=== PATIENT | female | born 1955 | race Caucasian/White ===

== ENCOUNTER 2017-11-04 22:07 | Inpatient (IN) | payer MEDICARE ==
[2017-11-04] MEDS: MORPHINE 4 MG/ML 1ML SYRINGE IV (00:10)
[2017-11-04] MEDS: NS 1,000 ML IV (00:10)
[2017-11-04] MEDS: ONDANSETRON 4MG/2ML VIAL (J2405) IV (00:10)
[2017-11-05] MEDS ORDERED: UNRESOLVED CLARIFICATION ENTRY XX (00:01)
[2017-11-05 00:16] LABS: KETONE, URINE AUTO RFX 1+ mg/dL (NEGATIVE); LEUKOCYTE ESTERASE UR AUTO RFX NEGATIVE (NEGATIVE); MUCUS, URINE RFX SMALL (NEGATIVE); NITRITE, URINE AUTO RFX NEGATIVE (NEGATIVE); RBC, URINE AUTO RFX 5 /HPF (0-3); SPECIFIC GRAVITY UR AUTO RFX 1.024 (1.002-1.035); SQUAM EPITHELIAL CELL UR AURFX 5 /HPF (0-6); TRANSITIONAL EPITHELIAL AU RFX 26 /HPF; WBC, URINE AUTO RFX 0 /HPF (0-3)
[2017-11-05] MEDS ORDERED: MORPHINE 2 MG/ML 1ML SYRINGE IV (00:30)
[2017-11-05 00:34] LABS: INR 0.97
[2017-11-05 00:50] LABS: ANION GAP 9 MEQ/L (8-16); BLOOD UREA NITROGEN 19 MG/DL (7-18); CARBON DIOXIDE LEVEL 28 MEQ/L (21-32); CHLORIDE LEVEL 100 MEQ/L (98-107); CPK CREATINE PHOSPHOKINASE 155 U/L (26-192); CREATININE FOR GFR 0.76 MG/DL (0.55-1.02); GLOMERULAR FILTRATION RATE > 60.0 (>45); GLUCOSE, FASTING 89 MG/DL (80-110); POTASSIUM SERUM 4.2 MEQ/L (3.5-5.1); SODIUM LEVEL 137 MEQ/L (136-145); TROPONIN I < 0.02 NG/ML (< 0.10)
[2017-11-05 00:51] LABS: CK-MB VALUE MASS 2.9 NG/ML (0.0-3.6); MB/CK RELATIVE INDEX 1.87 (< OR =4)
[2017-11-05 01:02] LABS: HEMATOCRIT 43.8 % (36.0-47.0); HEMOGLOBIN 15.2 g/dl (12.0-16.0); MEAN CORPUSCULAR HEMOGLOBIN 31.2 pg (27.0-33.0); MEAN CORPUSCULAR HGB CONC 34.7 g/dl (32.0-36.5); MEAN CORPUSCULAR VOLUME 89.9 fl (80.0-96.0); PLATELET COUNT, AUTOMATED 291 10^3/uL (150-450); RED BLOOD COUNT 4.87 10^6/uL (4.00-5.40); RED CELL DISTRIBUTION WIDTH 12.6 % (11.5-14.5); WHITE BLOOD COUNT 9.7 10^3/uL (4.0-10.0)
[2017-11-05] MEDS: ALBUTEROL SULFATE 2.5 MG/0.5 ML INH NEB SOLN INH (01:12)
[2017-11-05] MEDS: MORPHINE 2 MG/ML 1ML SYRINGE IV ×3 (07:05→19:51)
[2017-11-05] MEDS: SERTRALINE HCL 50 MG TAB PO (08:51)
[2017-11-05] MEDS: FAMOTIDINE 20 MG TAB PO ×2 (08:51→19:51)
[2017-11-05] MEDS: IBUPROFEN 200 MG TAB PO ×2 (08:56→18:09)
[2017-11-05] MEDS: NS 1,000 ML IV (11:27)
[2017-11-05 14:47] LABS: ABG BASE EXCESS -2.5 (-2.0-2.0); ABG HCO3 23.5 MEQ/L (22.0-26.0); ABG O2 SATURATION 90.1 % (95.0-99.0); ABG PARTIAL PRESSURE CO2 44.8 mmHg (35.0-45.0); ABG PARTIAL PRESSURE O2 60.8 mmHg (75.0-100.0); ABG STANDARD HCO3 22.2 MEQ/L (22.0-26.0); ABG TOTAL CO2 24.8 MEQ/L (23.0-31.0); ABG pH (ARTERIAL) 7.337 UNITS (7.350-7.450)
[2017-11-05] MEDS: PERCOCET 5MG/325MG TAB PO (18:54)
[2017-11-06] MEDS: NS 1,000 ML IV ×2 (01:36→14:03)
[2017-11-06] MEDS: PERCOCET 5MG/325MG TAB PO ×2 (05:05→20:17)
[2017-11-06 07:11] LABS: HEMATOCRIT 35.2 % (36.0-47.0); MEAN CORPUSCULAR HEMOGLOBIN 30.4 pg (27.0-33.0); MEAN CORPUSCULAR VOLUME 92.4 fl (80.0-96.0); PLATELET COUNT, AUTOMATED 240 10^3/uL (150-450); RED BLOOD COUNT 3.81 10^6/uL (4.00-5.40); RED CELL DISTRIBUTION WIDTH 12.6 % (11.5-14.5); WHITE BLOOD COUNT 6.2 10^3/uL (4.0-10.0)
[2017-11-06 07:24] LABS: HEMOGLOBIN 11.6 g/dl (12.0-16.0)
[2017-11-06 07:25] LABS: ANION GAP 4 MEQ/L (8-16); BLOOD UREA NITROGEN 16 MG/DL (7-18); CALCIUM LEVEL 7.7 MG/DL (8.8-10.2); CARBON DIOXIDE LEVEL 29 MEQ/L (21-32); CHLORIDE LEVEL 107 MEQ/L (98-107); CREATININE FOR GFR 0.49 MG/DL (0.55-1.02); GLOMERULAR FILTRATION RATE > 60.0 (>45); GLUCOSE, FASTING 70 MG/DL (80-110); POTASSIUM SERUM 3.8 MEQ/L (3.5-5.1); SODIUM LEVEL 140 MEQ/L (136-145)
[2017-11-06] MEDS: SERTRALINE HCL 50 MG TAB PO (09:00)
[2017-11-06] MEDS: FAMOTIDINE 20 MG TAB PO ×2 (09:00→20:17)
[2017-11-06] MEDS: IPRATROPIUM 0.5MG/ALBUTEROL 2.5MG INH SOL UD 3ML (DUONEB)(J7620) NEB ×5 (09:29→23:19)
[2017-11-06] MEDS: ceFAZolin 2 GM/D5W 50 ML IV BAG (J0690 PER 500MG) As Ordered (11:10)
[2017-11-06] MEDS: LIDOCAINE 2% MDV 20 ML VIAL As Ordered (11:20)
[2017-11-06] MEDS ORDERED: KETAMINE HCL 200 MG/20 ML VIAL As Ordered (11:30)
[2017-11-06] MEDS ORDERED: ePHEDrine SULFATE 25 MG/5 ML(5MG/ML) SYRINGE As Ordered (11:30)
[2017-11-06] MEDS ORDERED: PHENYLephrine HCL 500 MCG/5 ML (100MCG/ML) SYRINGE (J2370) As Ordered (11:30)
[2017-11-06] MEDS ORDERED: MIDAZOLAM INJ 2 MG/2 ML VIAL (J2250) As Ordered (11:30)
[2017-11-06] MEDS: ceFAZolin 1GM INJ (J0690 PER 500MG) As Ordered (11:37)
[2017-11-06] MEDS ORDERED: ONDANSETRON 4MG/2ML VIAL (J2405) As Ordered (11:37)
[2017-11-06] MEDS ORDERED: dexameTHASONE 4 MG/ML 1ML VIAL (J1100) As Ordered (11:37)
[2017-11-06] MEDS ORDERED: HYDROmorphone HCL 1 MG/ML SYRINGE (J1170) IV (12:30)
[2017-11-06] MEDS ORDERED: fentaNYL 100 MCG/2 ML INJECTION (J3010) IV (12:30)
[2017-11-06] MEDS: LR 1,000 ML IV (12:30)
[2017-11-06] MEDS ORDERED: ONDANSETRON 4MG/2ML VIAL (J2405) IV (12:30)
[2017-11-06] MEDS: CALCIUM GLUCONATE 1,000 MG in D5W MINI-BAG PLUS 100 ML IV (14:02)
[2017-11-06] MEDS: MORPHINE 2 MG/ML 1ML SYRINGE IV (14:03)
[2017-11-06] MEDS: INFLUENZA QUADRIVALENT PF VACCINE 0.5ML SYRINGE (90686) IM (14:04)
[2017-11-06] MEDS: WARFARIN SOD 5 MG TAB PO (16:04)
[2017-11-07] MEDS: IPRATROPIUM 0.5MG/ALBUTEROL 2.5MG INH SOL UD 3ML (DUONEB)(J7620) NEB ×6 (04:00→22:51)
[2017-11-07] MEDS: PERCOCET 5MG/325MG TAB PO ×3 (04:52→19:54)
[2017-11-07] MEDS: NS 1,000 ML IV (06:26)
[2017-11-07 06:34] LABS: HEMATOCRIT 34.8 % (36.0-47.0); HEMOGLOBIN 11.9 g/dl (12.0-16.0); MEAN CORPUSCULAR HEMOGLOBIN 31.1 pg (27.0-33.0); MEAN CORPUSCULAR HGB CONC 34.2 g/dl (32.0-36.5); MEAN CORPUSCULAR VOLUME 90.9 fl (80.0-96.0); PLATELET COUNT, AUTOMATED 206 10^3/uL (150-450); RED BLOOD COUNT 3.83 10^6/uL (4.00-5.40); RED CELL DISTRIBUTION WIDTH 12.3 % (11.5-14.5); WHITE BLOOD COUNT 6.2 10^3/uL (4.0-10.0)
[2017-11-07 06:47] LABS: INR 1.08; PROTHROMBIN TIME 14.1 SECONDS (12.4-14.5)
[2017-11-07 07:02] LABS: ANION GAP 8 MEQ/L (8-16); BLOOD UREA NITROGEN 9 MG/DL (7-18); CALCIUM LEVEL 7.8 MG/DL (8.8-10.2); CARBON DIOXIDE LEVEL 28 MEQ/L (21-32); CHLORIDE LEVEL 103 MEQ/L (98-107); CREATININE FOR GFR 0.37 MG/DL (0.55-1.02); GLOMERULAR FILTRATION RATE > 60.0 (>45); GLUCOSE, FASTING 83 MG/DL (80-110); POTASSIUM SERUM 4.1 MEQ/L (3.5-5.1); SODIUM LEVEL 139 MEQ/L (136-145)
[2017-11-07 08:44] LABS: IONIZED CALCIUM 4.3 MG/DL (4.5-5.3)
[2017-11-07] MEDS: SERTRALINE HCL 50 MG TAB PO (08:44)
[2017-11-07] MEDS: SENOKOT S TAB PO ×2 (08:45→19:53)
[2017-11-07] MEDS: FAMOTIDINE 20 MG TAB PO ×2 (08:45→19:53)
[2017-11-07] MEDS: MIRALAX *UNIT DOSE* 17GM PACKET PO (08:45)
[2017-11-07] MEDS: MOM 30ML SUSPENSION UDC PO (08:45)
[2017-11-07] MEDS: MORPHINE 2 MG/ML 1ML SYRINGE IV (08:49)
[2017-11-07] MEDS: WARFARIN SOD 2.5 MG TAB PO (17:12)
[2017-11-08] MEDS: IPRATROPIUM 0.5MG/ALBUTEROL 2.5MG INH SOL UD 3ML (DUONEB)(J7620) NEB ×5 (01:56→20:24)
[2017-11-08] MEDS: PERCOCET 5MG/325MG TAB PO (06:18)
[2017-11-08 06:50] LABS: HEMATOCRIT 39.2 % (36.0-47.0); HEMOGLOBIN 13.3 g/dl (12.0-16.0); MEAN CORPUSCULAR HGB CONC 33.9 g/dl (32.0-36.5); MEAN CORPUSCULAR VOLUME 91.4 fl (80.0-96.0); PLATELET COUNT, AUTOMATED 265 10^3/uL (150-450); RED BLOOD COUNT 4.29 10^6/uL (4.00-5.40); RED CELL DISTRIBUTION WIDTH 12.7 % (11.5-14.5)
[2017-11-08 06:58] LABS: PROTHROMBIN TIME 15.4 SECONDS (12.4-14.5)
[2017-11-08 07:15] LABS: ANION GAP 4 MEQ/L (8-16); BLOOD UREA NITROGEN 9 MG/DL (7-18); CALCIUM LEVEL 8.3 MG/DL (8.8-10.2); CARBON DIOXIDE LEVEL 35 MEQ/L (21-32); CHLORIDE LEVEL 99 MEQ/L (98-107); GLUCOSE, FASTING 77 MG/DL (80-110); POTASSIUM SERUM 4.2 MEQ/L (3.5-5.1); SODIUM LEVEL 138 MEQ/L (136-145)
[2017-11-08 07:24] LABS: GLOMERULAR FILTRATION RATE > 60.0 (>45)
[2017-11-08] MEDS: SENOKOT S TAB PO ×2 (09:59→19:37)
[2017-11-08] MEDS: MOM 30ML SUSPENSION UDC PO (09:59)
[2017-11-08] MEDS: MIRALAX *UNIT DOSE* 17GM PACKET PO (09:59)
[2017-11-08] MEDS: FAMOTIDINE 20 MG TAB PO ×2 (10:00→19:37)
[2017-11-08] MEDS: SERTRALINE HCL 50 MG TAB PO (10:00)
[2017-11-08] MEDS ORDERED: traMADol 50 MG TAB PO (11:15)
[2017-11-08] MEDS: WARFARIN SOD 4 MG TAB PO (16:37)
[2017-11-08] MEDS: traMADol 50 MG TAB PO (19:37)
[2017-11-09] MEDS: IPRATROPIUM 0.5MG/ALBUTEROL 2.5MG INH SOL UD 3ML (DUONEB)(J7620) NEB ×6 (03:41→20:00)
[2017-11-09] MEDS: traMADol 50 MG TAB PO (05:22)
[2017-11-09 07:12] LABS: HEMATOCRIT 42.7 % (36.0-47.0); HEMOGLOBIN 14.5 g/dl (12.0-16.0); MEAN CORPUSCULAR HEMOGLOBIN 31.2 pg (27.0-33.0); MEAN CORPUSCULAR VOLUME 91.8 fl (80.0-96.0); PLATELET COUNT, AUTOMATED 321 10^3/uL (150-450); RED BLOOD COUNT 4.65 10^6/uL (4.00-5.40); RED CELL DISTRIBUTION WIDTH 12.8 % (11.5-14.5); WHITE BLOOD COUNT 6.7 10^3/uL (4.0-10.0)
[2017-11-09 07:18] LABS: PROTHROMBIN TIME 17.5 SECONDS (12.4-14.5)
[2017-11-09 08:17] LABS: ANION GAP 5 MEQ/L (8-16); BLOOD UREA NITROGEN 7 MG/DL (7-18); CALCIUM LEVEL 9.1 MG/DL (8.8-10.2); CARBON DIOXIDE LEVEL 32 MEQ/L (21-32); CHLORIDE LEVEL 96 MEQ/L (98-107); CREATININE FOR GFR 0.57 MG/DL (0.55-1.02); GLOMERULAR FILTRATION RATE > 60.0 (>45); GLUCOSE, FASTING 92 MG/DL (80-110); SODIUM LEVEL 133 MEQ/L (136-145)
[2017-11-09] MEDS: MOM 30ML SUSPENSION UDC PO (09:59)
[2017-11-09] MEDS: SENOKOT S TAB PO ×2 (09:59→20:04)
[2017-11-09] MEDS: MIRALAX *UNIT DOSE* 17GM PACKET PO (09:59)
[2017-11-09] MEDS: SERTRALINE HCL 50 MG TAB PO (10:00)
[2017-11-09] MEDS: FAMOTIDINE 20 MG TAB PO ×2 (10:00→20:04)
[2017-11-09] MEDS: D5W/0.45% SODIUM CHLORIDE 1,000 ML IV ×2 (11:48→20:04)
[2017-11-09] MEDS: WARFARIN SOD 3 MG TAB PO (17:48)
[2017-11-10] MEDS: IPRATROPIUM 0.5MG/ALBUTEROL 2.5MG INH SOL UD 3ML (DUONEB)(J7620) NEB ×6 (04:00→20:53)
[2017-11-10 06:53] LABS: HEMATOCRIT 39.5 % (36.0-47.0); HEMOGLOBIN 13.4 g/dl (12.0-16.0); MEAN CORPUSCULAR HEMOGLOBIN 31.3 pg (27.0-33.0); MEAN CORPUSCULAR HGB CONC 33.9 g/dl (32.0-36.5); MEAN CORPUSCULAR VOLUME 92.3 fl (80.0-96.0); PLATELET COUNT, AUTOMATED 333 10^3/uL (150-450); RED BLOOD COUNT 4.28 10^6/uL (4.00-5.40); WHITE BLOOD COUNT 6.1 10^3/uL (4.0-10.0)
[2017-11-10 07:04] LABS: ANION GAP 6 MEQ/L (8-16); BLOOD UREA NITROGEN 7 MG/DL (7-18); CALCIUM LEVEL 8.1 MG/DL (8.8-10.2); CARBON DIOXIDE LEVEL 32 MEQ/L (21-32); CHLORIDE LEVEL 99 MEQ/L (98-107); CREATININE FOR GFR 0.65 MG/DL (0.55-1.02); GLOMERULAR FILTRATION RATE > 60.0 (>45); GLUCOSE, FASTING 107 MG/DL (80-110); POTASSIUM SERUM 3.6 MEQ/L (3.5-5.1); SODIUM LEVEL 137 MEQ/L (136-145)
[2017-11-10 07:09] LABS: INR 1.52; PROTHROMBIN TIME 18.7 SECONDS (12.4-14.5)
[2017-11-10] MEDS: MIRALAX *UNIT DOSE* 17GM PACKET PO (09:00)
[2017-11-10] MEDS: SERTRALINE HCL 50 MG TAB PO (10:01)
[2017-11-10] MEDS: SENOKOT S TAB PO ×2 (10:01→20:30)
[2017-11-10] MEDS: MOM 30ML SUSPENSION UDC PO (10:01)
[2017-11-10] MEDS: FAMOTIDINE 20 MG TAB PO ×2 (10:01→20:30)
[2017-11-10] MEDS: ACETAMINOPHEN 500 MG TAB PO ×2 (15:09→23:05)
[2017-11-10] MEDS: WARFARIN SOD 3 MG TAB PO (16:29)
[2017-11-11] MEDS: IPRATROPIUM 0.5MG/ALBUTEROL 2.5MG INH SOL UD 3ML (DUONEB)(J7620) NEB ×6 (03:14→19:31)
[2017-11-11 06:10] LABS: HEMATOCRIT 36.8 % (36.0-47.0); HEMOGLOBIN 12.5 g/dl (12.0-16.0); MEAN CORPUSCULAR VOLUME 91.3 fl (80.0-96.0); PLATELET COUNT, AUTOMATED 352 10^3/uL (150-450); RED BLOOD COUNT 4.03 10^6/uL (4.00-5.40); RED CELL DISTRIBUTION WIDTH 12.8 % (11.5-14.5); WHITE BLOOD COUNT 5.5 10^3/uL (4.0-10.0)
[2017-11-11 06:33] LABS: ANION GAP 5 MEQ/L (8-16); BLOOD UREA NITROGEN 13 MG/DL (7-18); CALCIUM LEVEL 8.3 MG/DL (8.8-10.2); CARBON DIOXIDE LEVEL 29 MEQ/L (21-32); CHLORIDE LEVEL 102 MEQ/L (98-107); CREATININE FOR GFR 0.54 MG/DL (0.55-1.02); GLOMERULAR FILTRATION RATE > 60.0 (>45); GLUCOSE, FASTING 85 MG/DL (80-110); POTASSIUM SERUM 3.9 MEQ/L (3.5-5.1); SODIUM LEVEL 136 MEQ/L (136-145)
[2017-11-11] MEDS: FAMOTIDINE 20 MG TAB PO ×2 (08:24→20:08)
[2017-11-11] MEDS: ACETAMINOPHEN 500 MG TAB PO ×2 (08:24→20:08)
[2017-11-11] MEDS: SERTRALINE HCL 50 MG TAB PO (08:24)
[2017-11-11] MEDS: SENOKOT S TAB PO ×2 (08:24→20:08)
[2017-11-11] MEDS: MOM 30ML SUSPENSION UDC PO (08:25)
[2017-11-11] MEDS: MIRALAX *UNIT DOSE* 17GM PACKET PO (08:26)
[2017-11-12] MEDS: IPRATROPIUM 0.5MG/ALBUTEROL 2.5MG INH SOL UD 3ML (DUONEB)(J7620) NEB ×6 (03:10→21:02)
[2017-11-12 06:56] LABS: HEMATOCRIT 35.8 % (36.0-47.0); MEAN CORPUSCULAR HEMOGLOBIN 31.3 pg (27.0-33.0); MEAN CORPUSCULAR HGB CONC 33.5 g/dl (32.0-36.5); MEAN CORPUSCULAR VOLUME 93.5 fl (80.0-96.0); PLATELET COUNT, AUTOMATED 343 10^3/uL (150-450); RED BLOOD COUNT 3.83 10^6/uL (4.00-5.40); RED CELL DISTRIBUTION WIDTH 13.2 % (11.5-14.5); WHITE BLOOD COUNT 6.2 10^3/uL (4.0-10.0)
[2017-11-12 07:26] LABS: ANION GAP 8 MEQ/L (8-16); BLOOD UREA NITROGEN 16 MG/DL (7-18); CALCIUM LEVEL 8.5 MG/DL (8.8-10.2); CARBON DIOXIDE LEVEL 29 MEQ/L (21-32); CHLORIDE LEVEL 102 MEQ/L (98-107); GLOMERULAR FILTRATION RATE > 60.0 (>45); GLUCOSE, FASTING 85 MG/DL (80-110); POTASSIUM SERUM 3.9 MEQ/L (3.5-5.1); SODIUM LEVEL 139 MEQ/L (136-145)
[2017-11-12] MEDS: MOM 30ML SUSPENSION UDC PO ×2 (09:00→09:23)
[2017-11-12] MEDS: SENOKOT S TAB PO ×2 (09:23→20:25)
[2017-11-12] MEDS: ACETAMINOPHEN 500 MG TAB PO ×2 (09:24→20:25)
[2017-11-12] MEDS: MIRALAX *UNIT DOSE* 17GM PACKET PO (09:24)
[2017-11-12] MEDS: SERTRALINE HCL 50 MG TAB PO (09:24)
[2017-11-12] MEDS: FAMOTIDINE 20 MG TAB PO ×2 (09:24→20:24)
[2017-11-12] MEDS: MAGNESIUM CITRATE 300 ML BTL PO (10:39)
[2017-11-12] MEDS: FLEET ENEMA PR (15:41)
[2017-11-12] MEDS: WARFARIN SOD 5 MG TAB PO (17:42)
[2017-11-13 07:27] LABS: INR 1.32; PROTHROMBIN TIME 16.7 SECONDS (12.4-14.5)
[2017-11-13] MEDS: SERTRALINE HCL 50 MG TAB PO (08:25)
[2017-11-13] MEDS: FAMOTIDINE 20 MG TAB PO ×2 (08:25→20:04)
[2017-11-13] MEDS: SENOKOT S TAB PO ×2 (08:25→20:05)
[2017-11-13] MEDS: MOM 30ML SUSPENSION UDC PO (08:26)
[2017-11-13] MEDS: MIRALAX *UNIT DOSE* 17GM PACKET PO ×2 (08:26→09:32)
[2017-11-13] MEDS: IPRATROPIUM 0.5MG/ALBUTEROL 2.5MG INH SOL UD 3ML (DUONEB)(J7620) NEB ×6 (09:05→23:47)
[2017-11-13] MEDS: WARFARIN SOD 3 MG TAB PO (18:00)
[2017-11-13] MEDS: ACETAMINOPHEN 500 MG TAB PO (20:05)
[2017-11-14] MEDS: IPRATROPIUM 0.5MG/ALBUTEROL 2.5MG INH SOL UD 3ML (DUONEB)(J7620) NEB ×4 (04:00→20:23)
[2017-11-14 06:52] LABS: INR 1.37; PROTHROMBIN TIME 17.2 SECONDS (12.4-14.5)
[2017-11-14] MEDS: FAMOTIDINE 20 MG TAB PO ×2 (08:12→20:10)
[2017-11-14] MEDS: SERTRALINE HCL 50 MG TAB PO (08:12)
[2017-11-14] MEDS: SENOKOT S TAB PO ×2 (08:12→20:10)
[2017-11-14] MEDS: ACETAMINOPHEN 500 MG TAB PO ×2 (08:12→20:10)
[2017-11-14] MEDS: MIRALAX *UNIT DOSE* 17GM PACKET PO (08:13)
[2017-11-14] MEDS: MOM 30ML SUSPENSION UDC PO ×2 (08:13→08:19)
[2017-11-14] MEDS: WARFARIN SOD 7.5 MG TAB PO (17:11)
[2017-11-15] MEDS: IPRATROPIUM 0.5MG/ALBUTEROL 2.5MG INH SOL UD 3ML (DUONEB)(J7620) NEB ×8 (04:00→23:01)
[2017-11-15 06:46] LABS: INR 1.83; PROTHROMBIN TIME 21.7 SECONDS (12.4-14.5)
[2017-11-15] MEDS: FAMOTIDINE 20 MG TAB PO ×2 (08:45→21:13)
[2017-11-15] MEDS: SERTRALINE HCL 50 MG TAB PO (08:45)
[2017-11-15] MEDS: SENOKOT S TAB PO ×2 (08:45→21:13)
[2017-11-15] MEDS: MIRALAX *UNIT DOSE* 17GM PACKET PO (08:46)
[2017-11-15] MEDS: ACETAMINOPHEN 500 MG TAB PO ×2 (08:46→18:07)
[2017-11-15] MEDS: MOM 30ML SUSPENSION UDC PO (08:46)
[2017-11-16 06:29] LABS: INR 1.78; PROTHROMBIN TIME 21.3 SECONDS (12.4-14.5)
[2017-11-16] MEDS: ACETAMINOPHEN 500 MG TAB PO ×2 (07:54→16:51)
[2017-11-16] MEDS: SENOKOT S TAB PO ×2 (07:55→20:00)
[2017-11-16] MEDS: FAMOTIDINE 20 MG TAB PO ×2 (07:55→20:00)
[2017-11-16] MEDS: MOM 30ML SUSPENSION UDC PO (07:55)
[2017-11-16] MEDS: MIRALAX *UNIT DOSE* 17GM PACKET PO (07:55)
[2017-11-16] MEDS: SERTRALINE HCL 50 MG TAB PO (07:55)
[2017-11-16] MEDS: IPRATROPIUM 0.5MG/ALBUTEROL 2.5MG INH SOL UD 3ML (DUONEB)(J7620) NEB ×6 (08:00→23:36)
[2017-11-16] MEDS: WARFARIN SOD 5 MG TAB PO (16:51)
[2017-11-17 07:06] LABS: INR 1.65
[2017-11-17] MEDS: IPRATROPIUM 0.5MG/ALBUTEROL 2.5MG INH SOL UD 3ML (DUONEB)(J7620) NEB ×6 (07:17→23:01)
[2017-11-17] MEDS: MIRALAX *UNIT DOSE* 17GM PACKET PO (08:16)
[2017-11-17] MEDS: MOM 30ML SUSPENSION UDC PO (08:16)
[2017-11-17] MEDS: SERTRALINE HCL 50 MG TAB PO (08:16)
[2017-11-17] MEDS: SENOKOT S TAB PO ×2 (08:16→21:23)
[2017-11-17] MEDS: FAMOTIDINE 20 MG TAB PO ×2 (08:16→21:24)
[2017-11-17] MEDS: WARFARIN SOD 2.5 MG TAB PO (16:40)
[2017-11-18] MEDS: ACETAMINOPHEN 500 MG TAB PO ×2 (03:21→20:13)
[2017-11-18 07:15] LABS: INR 1.65
[2017-11-18] MEDS: IPRATROPIUM 0.5MG/ALBUTEROL 2.5MG INH SOL UD 3ML (DUONEB)(J7620) NEB ×5 (07:47→23:00)
[2017-11-18] MEDS: MIRALAX *UNIT DOSE* 17GM PACKET PO (09:31)
[2017-11-18] MEDS: MOM 30ML SUSPENSION UDC PO (09:31)
[2017-11-18] MEDS: SENOKOT S TAB PO ×2 (09:31→20:13)
[2017-11-18] MEDS: FAMOTIDINE 20 MG TAB PO ×2 (09:31→20:13)
[2017-11-18] MEDS: SERTRALINE HCL 50 MG TAB PO (09:32)
[2017-11-18] MEDS: WARFARIN SOD 2.5 MG TAB PO (17:10)
[2017-11-19] MEDS: IPRATROPIUM 0.5MG/ALBUTEROL 2.5MG INH SOL UD 3ML (DUONEB)(J7620) NEB ×6 (03:49→23:45)
[2017-11-19 07:08] LABS: HEMATOCRIT 33.8 % (36.0-47.0); HEMOGLOBIN 11.6 g/dl (12.0-16.0); MEAN CORPUSCULAR HEMOGLOBIN 31.1 pg (27.0-33.0); MEAN CORPUSCULAR HGB CONC 34.3 g/dl (32.0-36.5); MEAN CORPUSCULAR VOLUME 90.6 fl (80.0-96.0); PLATELET COUNT, AUTOMATED 468 10^3/uL (150-450); RED BLOOD COUNT 3.73 10^6/uL (4.00-5.40); RED CELL DISTRIBUTION WIDTH 12.9 % (11.5-14.5)
[2017-11-19 07:23] LABS: ANION GAP 8 MEQ/L (8-16); BLOOD UREA NITROGEN 20 MG/DL (7-18); CALCIUM LEVEL 8.2 MG/DL (8.8-10.2); CARBON DIOXIDE LEVEL 29 MEQ/L (21-32); CHLORIDE LEVEL 101 MEQ/L (98-107); CREATININE FOR GFR 0.51 MG/DL (0.55-1.02); GLOMERULAR FILTRATION RATE > 60.0 (>45); GLUCOSE, FASTING 83 MG/DL (80-110); INR 1.59; POTASSIUM SERUM 3.6 MEQ/L (3.5-5.1); PROTHROMBIN TIME 19.4 SECONDS (12.4-14.5); SODIUM LEVEL 138 MEQ/L (136-145)
[2017-11-19] MEDS: FAMOTIDINE 20 MG TAB PO ×2 (07:54→20:07)
[2017-11-19] MEDS: MIRALAX *UNIT DOSE* 17GM PACKET PO (07:54)
[2017-11-19] MEDS: SENOKOT S TAB PO ×2 (07:54→20:07)
[2017-11-19] MEDS: MOM 30ML SUSPENSION UDC PO ×2 (07:54→07:56)
[2017-11-19] MEDS: SERTRALINE HCL 50 MG TAB PO (07:54)
[2017-11-19] MEDS: WARFARIN SOD 4 MG TAB PO (16:39)
[2017-11-19] MEDS: ACETAMINOPHEN 500 MG TAB PO (20:07)
[2017-11-20] MEDS: IPRATROPIUM 0.5MG/ALBUTEROL 2.5MG INH SOL UD 3ML (DUONEB)(J7620) NEB ×5 (04:00→21:54)
[2017-11-20] MEDS: ACETAMINOPHEN 500 MG TAB PO ×2 (05:09→16:52)
[2017-11-20 07:05] LABS: INR 1.66; PROTHROMBIN TIME 20.1 SECONDS (12.4-14.5)
[2017-11-20] MEDS: MAGNESIUM CITRATE 300 ML BTL PO (07:08)
[2017-11-20] MEDS: MOM 30ML SUSPENSION UDC PO (09:07)
[2017-11-20] MEDS: SENOKOT S TAB PO ×2 (09:07→19:48)
[2017-11-20] MEDS: FAMOTIDINE 20 MG TAB PO ×2 (09:07→19:48)
[2017-11-20] MEDS: SERTRALINE HCL 50 MG TAB PO (09:07)
[2017-11-20] MEDS: MIRALAX *UNIT DOSE* 17GM PACKET PO (09:07)
[2017-11-20] MEDS: WARFARIN SOD 5 MG TAB PO (16:51)
[2017-11-21] MEDS: IPRATROPIUM 0.5MG/ALBUTEROL 2.5MG INH SOL UD 3ML (DUONEB)(J7620) NEB ×6 (04:00→19:49)
[2017-11-21] MEDS: MOM 30ML SUSPENSION UDC PO (10:01)
[2017-11-21] MEDS: SENOKOT S TAB PO ×2 (10:02→20:22)
[2017-11-21] MEDS: FAMOTIDINE 20 MG TAB PO ×2 (10:02→20:21)
[2017-11-21] MEDS: SERTRALINE HCL 50 MG TAB PO (10:02)
[2017-11-21] MEDS: MIRALAX *UNIT DOSE* 17GM PACKET PO (10:02)
[2017-11-21] MEDS: WARFARIN SOD 2.5 MG TAB PO (17:10)
[2017-11-22] MEDS: IPRATROPIUM 0.5MG/ALBUTEROL 2.5MG INH SOL UD 3ML (DUONEB)(J7620) NEB ×6 (04:00→22:28)
[2017-11-22 06:19] LABS: INR 1.83; PROTHROMBIN TIME 21.7 SECONDS (12.4-14.5)
[2017-11-22] MEDS: MIRALAX *UNIT DOSE* 17GM PACKET PO (09:00)
[2017-11-22] MEDS: MOM 30ML SUSPENSION UDC PO (09:00)
[2017-11-22] MEDS: SERTRALINE HCL 50 MG TAB PO (10:11)
[2017-11-22] MEDS: FAMOTIDINE 20 MG TAB PO ×2 (10:11→20:02)
[2017-11-22] MEDS: SENOKOT S TAB PO ×2 (10:11→20:02)
[2017-11-22] MEDS: WARFARIN SOD 5 MG TAB PO (16:57)
[2017-11-23] MEDS: IPRATROPIUM 0.5MG/ALBUTEROL 2.5MG INH SOL UD 3ML (DUONEB)(J7620) NEB ×6 (04:00→20:00)
[2017-11-23 07:05] LABS: HEMATOCRIT 34.4 % (36.0-47.0); HEMOGLOBIN 11.7 g/dl (12.0-16.0); MEAN CORPUSCULAR HEMOGLOBIN 31.2 pg (27.0-33.0); MEAN CORPUSCULAR VOLUME 91.7 fl (80.0-96.0); PLATELET COUNT, AUTOMATED 486 10^3/uL (150-450); RED BLOOD COUNT 3.75 10^6/uL (4.00-5.40); WHITE BLOOD COUNT 5.9 10^3/uL (4.0-10.0)
[2017-11-23 07:16] LABS: INR 1.72; PROTHROMBIN TIME 20.7 SECONDS (12.4-14.5)
[2017-11-23 07:41] LABS: ANION GAP 6 MEQ/L (8-16); BLOOD UREA NITROGEN 15 MG/DL (7-18); CALCIUM LEVEL 8.7 MG/DL (8.8-10.2); CARBON DIOXIDE LEVEL 31 MEQ/L (21-32); CHLORIDE LEVEL 99 MEQ/L (98-107); CREATININE FOR GFR 0.69 MG/DL (0.55-1.02); GLOMERULAR FILTRATION RATE > 60.0 (>45); GLUCOSE, FASTING 79 MG/DL (80-110); SODIUM LEVEL 136 MEQ/L (136-145)
[2017-11-23] MEDS: MOM 30ML SUSPENSION UDC PO (08:35)
[2017-11-23] MEDS: MIRALAX *UNIT DOSE* 17GM PACKET PO (08:35)
[2017-11-23] MEDS: SERTRALINE HCL 50 MG TAB PO (08:36)
[2017-11-23] MEDS: SENOKOT S TAB PO ×2 (08:36→20:43)
[2017-11-23] MEDS: FAMOTIDINE 20 MG TAB PO ×2 (08:37→20:43)
[2017-11-23] MEDS: ACETAMINOPHEN 500 MG TAB PO (10:58)
[2017-11-23] MEDS: WARFARIN SOD 3 MG TAB PO (16:09)
[2017-11-24] MEDS: IPRATROPIUM 0.5MG/ALBUTEROL 2.5MG INH SOL UD 3ML (DUONEB)(J7620) NEB ×7 (01:46→23:42)
[2017-11-24 07:48] LABS: INR 1.79; PROTHROMBIN TIME 21.3 SECONDS (12.4-14.5)
[2017-11-24] MEDS: FAMOTIDINE 20 MG TAB PO ×2 (08:32→20:10)
[2017-11-24] MEDS: SERTRALINE HCL 50 MG TAB PO (08:32)
[2017-11-24] MEDS: MIRALAX *UNIT DOSE* 17GM PACKET PO (08:33)
[2017-11-24] MEDS: MOM 30ML SUSPENSION UDC PO (08:33)
[2017-11-24] MEDS: SENOKOT S TAB PO ×2 (08:33→20:10)
[2017-11-24] MEDS: WARFARIN SOD 7.5 MG TAB PO (16:36)
[2017-11-25] MEDS: IPRATROPIUM 0.5MG/ALBUTEROL 2.5MG INH SOL UD 3ML (DUONEB)(J7620) NEB ×5 (00:20→23:07)
[2017-11-25 07:23] LABS: INR 2.41; PROTHROMBIN TIME 27.2 SECONDS (12.4-14.5)
[2017-11-25] MEDS: FAMOTIDINE 20 MG TAB PO ×2 (08:54→20:05)
[2017-11-25] MEDS: MIRALAX *UNIT DOSE* 17GM PACKET PO (08:54)
[2017-11-25] MEDS: SERTRALINE HCL 50 MG TAB PO (08:55)
[2017-11-25] MEDS: SENOKOT S TAB PO ×2 (08:55→20:05)
[2017-11-25] MEDS: MOM 30ML SUSPENSION UDC PO (08:58)
[2017-11-25] MEDS: ACETAMINOPHEN 500 MG TAB PO (20:06)
[2017-11-26] MEDS: IPRATROPIUM 0.5MG/ALBUTEROL 2.5MG INH SOL UD 3ML (DUONEB)(J7620) NEB ×6 (04:00→20:00)
[2017-11-26 07:07] LABS: INR 2.04; PROTHROMBIN TIME 23.8 SECONDS (12.4-14.5)
[2017-11-26] MEDS: FAMOTIDINE 20 MG TAB PO ×2 (08:52→20:51)
[2017-11-26] MEDS: SENOKOT S TAB PO ×2 (08:52→20:50)
[2017-11-26] MEDS: SERTRALINE HCL 50 MG TAB PO (08:53)
[2017-11-26] MEDS: MIRALAX *UNIT DOSE* 17GM PACKET PO (08:53)
[2017-11-26] MEDS: MOM 30ML SUSPENSION UDC PO (09:00)
[2017-11-26] MEDS: WARFARIN SOD 2.5 MG TAB PO (17:16)
[2017-11-27] MEDS: IPRATROPIUM 0.5MG/ALBUTEROL 2.5MG INH SOL UD 3ML (DUONEB)(J7620) NEB ×5 (01:36→20:00)
[2017-11-27] MEDS: MOM 30ML SUSPENSION UDC PO (08:11)
[2017-11-27] MEDS: SENOKOT S TAB PO ×2 (08:11→20:44)
[2017-11-27] MEDS: MIRALAX *UNIT DOSE* 17GM PACKET PO (08:11)
[2017-11-27] MEDS: FAMOTIDINE 20 MG TAB PO ×2 (08:12→20:44)
[2017-11-27] MEDS: SERTRALINE HCL 50 MG TAB PO (08:12)
[2017-11-28] MEDS: IPRATROPIUM 0.5MG/ALBUTEROL 2.5MG INH SOL UD 3ML (DUONEB)(J7620) NEB ×8 (02:20→21:56)
[2017-11-28] MEDS: FAMOTIDINE 20 MG TAB PO ×2 (08:52→20:50)
[2017-11-28] MEDS: SERTRALINE HCL 50 MG TAB PO (08:52)
[2017-11-28] MEDS: MOM 30ML SUSPENSION UDC PO (08:52)
[2017-11-28] MEDS: SENOKOT S TAB PO ×2 (08:52→20:50)
[2017-11-28] MEDS: MIRALAX *UNIT DOSE* 17GM PACKET PO (08:53)
[2017-11-28] MEDS: WARFARIN SOD 2.5 MG TAB PO (16:00)
[2017-11-29] MEDS: IPRATROPIUM 0.5MG/ALBUTEROL 2.5MG INH SOL UD 3ML (DUONEB)(J7620) NEB (08:00)
[2017-11-29] MEDS: SENOKOT S TAB PO ×2 (08:55→21:05)
[2017-11-29] MEDS: MOM 30ML SUSPENSION UDC PO (08:56)
[2017-11-29] MEDS: FAMOTIDINE 20 MG TAB PO ×2 (08:56→21:05)
[2017-11-29] MEDS: MIRALAX *UNIT DOSE* 17GM PACKET PO (08:56)
[2017-11-29] MEDS: SERTRALINE HCL 50 MG TAB PO (08:56)
[2017-11-30] MEDS: MOM 30ML SUSPENSION UDC PO (09:00)
[2017-11-30] MEDS: MIRALAX *UNIT DOSE* 17GM PACKET PO (09:23)
[2017-11-30] MEDS: SENOKOT S TAB PO ×2 (09:23→19:39)
[2017-11-30] MEDS: FAMOTIDINE 20 MG TAB PO ×2 (09:23→19:39)
[2017-11-30] MEDS: SERTRALINE HCL 50 MG TAB PO (09:23)
[2017-11-30] MEDS: WARFARIN SOD 2.5 MG TAB PO (16:39)
[2017-11-30] MEDS: ACETAMINOPHEN 500 MG TAB PO (19:39)
[2017-12-01 07:20] LABS: PROTHROMBIN TIME 13.3 SECONDS (12.4-14.5)
[2017-12-01] MEDS: FAMOTIDINE 20 MG TAB PO ×2 (08:40→20:55)
[2017-12-01] MEDS: SERTRALINE HCL 50 MG TAB PO (08:40)
[2017-12-01] MEDS: SENOKOT S TAB PO ×2 (08:40→20:55)
[2017-12-01] MEDS: MIRALAX *UNIT DOSE* 17GM PACKET PO (08:40)
[2017-12-01] MEDS: MOM 30ML SUSPENSION UDC PO (08:44)
[2017-12-01] MEDS ORDERED: WARFARIN SOD 2.5 MG TAB PO (17:00)
[2017-12-01] MEDS: WARFARIN SOD 5 MG TAB PO (17:25)
[2017-12-02 07:49] LABS: INR 1.07
[2017-12-02] MEDS: MOM 30ML SUSPENSION UDC PO ×2 (08:39→08:42)
[2017-12-02] MEDS: ENOXAPARIN 40 MG/0.4 ML SYRINGE (J1650) SC (08:39)
[2017-12-02] MEDS: MIRALAX *UNIT DOSE* 17GM PACKET PO ×2 (08:39→08:43)
[2017-12-02] MEDS: FAMOTIDINE 20 MG TAB PO (08:40)
[2017-12-02] MEDS: SENOKOT S TAB PO (08:40)
[2017-12-02] MEDS: SERTRALINE HCL 50 MG TAB PO (08:40)
[2017-12-02] MEDS ORDERED: WARFARIN SOD 2.5 MG TAB PO (17:00)
== END 2017-12-02 15:29 | disposition home or self-care (01) | DRG 480 ==
LOC: M ED 22:07 → M MS5PR 11-25 23:29 → M ED INP 11-05 00:47 → M MS5PR 11-06 12:40
PROC: 0QS706Z Reposition Left Upper Femur with Intramedullary Internal Fixation Device, Open Approach (ICD-10-PCS; principal; 2017-11-06 10:00)
DX: S72.042A Displaced fracture of base of neck of left femur, initial encounter for closed fracture (principal); E43 Unspecified severe protein-calorie malnutrition; C34.90 Malignant neoplasm of unspecified part of unspecified bronchus or lung; C79.31 Secondary malignant neoplasm of brain; Z66 Do not resuscitate; K21.9 Gastro-esophageal reflux disease without esophagitis; R29.6 Repeated falls; F32.9 Major depressive disorder, single episode, unspecified; F17.200 Nicotine dependence, unspecified, uncomplicated; W01.0XXA Fall on same level from slipping, tripping and stumbling without subsequent striking against object, initial encounter; Y92.019 Unspecified place in single-family (private) house as the place of occurrence of the external cause; Y93.89 Activity, other specified; Z88.6 Allergy status to analgesic agent; Z92.21 Personal history of antineoplastic chemotherapy; Z92.3 Personal history of irradiation; Z90.2 Acquired absence of lung [part of]

== ENCOUNTER 2018-08-05 10:35 | Emergency (ER) | payer OTHER, MEDICARE ==
[2018-08-05 11:44] LABS: BASO % 0.2 % (0.0-1.0); HEMATOCRIT 38.2 % (36.0-47.0); HEMOGLOBIN 13.2 g/dl (12.0-15.5); IMMATURE GRANULOCYTE % 0.4 % (0-3.0); LYMPH # 0.6 10^3/uL (1.5-4.5); LYMPH % 3.1 % (24.0-44.0); MEAN CORPUSCULAR HGB CONC 34.6 g/dl (32.0-36.5); MEAN CORPUSCULAR VOLUME 89.7 fl (80.0-96.0); MONO # 1.1 10^3/uL (0.0-0.8); MONO % 5.8 % (0.0-5.0); NEUTROPHILS # 16.4 10^3/uL (1.8-7.7); NEUTROPHILS % 90.5 % (36.0-66.0); PLATELET COUNT, AUTOMATED 368 10^3/uL (150-450); RED BLOOD COUNT 4.26 10^6/uL (4.00-5.40); RED CELL DISTRIBUTION WIDTH 13.8 % (11.5-14.5); WHITE BLOOD COUNT 18.1 10^3/uL (4.0-10.0)
[2018-08-05 12:40] LABS: ALBUMIN 3.2 GM/DL (3.2-5.2); ALBUMIN/GLOBULIN RATIO 0.73 (1.00-1.93); ALKALINE PHOSPHATASE 86 U/L (45-117); ALT/SGPT 24 U/L (12-78); ANION GAP 8 MEQ/L (8-16); AST/SGOT 11 U/L (7-37); BILIRUBIN,DIRECT 0.2 MG/DL (0.0-0.2); BILIRUBIN,TOTAL 0.6 MG/DL (0.2-1.0); BLOOD UREA NITROGEN 14 MG/DL (7-18); CALCIUM LEVEL 9.1 MG/DL (8.8-10.2); CARBON DIOXIDE LEVEL 25 MEQ/L (21-32); CHLORIDE LEVEL 101 MEQ/L (98-107); CK-MB VALUE MASS < 1.0 NG/ML (<3.6); CPK CREATINE PHOSPHOKINASE 45 U/L (26-192); CREATININE FOR GFR 0.63 MG/DL (0.55-1.30); GLOMERULAR FILTRATION RATE > 60.0 (>45); GLUCOSE, FASTING 104 MG/DL (70-100); MB/CK RELATIVE INDEX 2.22 (< OR =4); SODIUM LEVEL 134 MEQ/L (136-145); TOTAL PROTEIN 7.6 GM/DL (6.4-8.2); TROPONIN I < 0.02 NG/ML (< 0.10)
[2018-08-05] MEDS: NS 1,000 ML IV (14:15)
[2018-08-05 14:39] LABS: PREALBUMIN 11.9 MG/DL (20.0-40.0)
[2018-08-05] MEDS: cefTRIAXone SOD 1 GM in D5W MINI-BAG PLUS 50 ML IV (17:17)
[2018-08-09 12:55] LABS: BEDSIDE GLUCOSE 127 MG/DL (80-115)
== END 2018-08-05 18:19 | disposition home or self-care (01) ==
LOC: M ED 10:35
DX: N39.0 Urinary tract infection, site not specified (principal); J44.9 Chronic obstructive pulmonary disease, unspecified; K21.9 Gastro-esophageal reflux disease without esophagitis; F33.9 Major depressive disorder, recurrent, unspecified; Z79.899 Other long term (current) drug therapy; F17.210 Nicotine dependence, cigarettes, uncomplicated
CPT/HCPCS: J0696

== ENCOUNTER 2018-08-11 13:38 | Inpatient (IN) | payer OTHER ==
[2018-08-11 15:24] LABS: HEMATOCRIT 38.8 % (36.0-47.0); HEMOGLOBIN 12.9 g/dl (12.0-15.5); MEAN CORPUSCULAR HEMOGLOBIN 30.6 pg (27.0-33.0); MEAN CORPUSCULAR HGB CONC 33.2 g/dl (32.0-36.5); MEAN CORPUSCULAR VOLUME 92.2 fl (80.0-96.0); PLATELET COUNT, AUTOMATED 672 10^3/uL (150-450); RED BLOOD COUNT 4.21 10^6/uL (4.00-5.40); RED CELL DISTRIBUTION WIDTH 13.8 % (11.5-14.5); WHITE BLOOD COUNT 14.5 10^3/uL (4.0-10.0)
[2018-08-11] MEDS: NS 1,000 ML IV ×3 (15:25→22:54)
[2018-08-11 15:27] LABS: VENOUS BASE EXCESS 0.2 (-2.0-2.0); VENOUS HCO3 26.4 MEQ/L (23.0-27.0); VENOUS O2 SATURATION 57.2 % (60.0-80.0); VENOUS PARTIAL PRESSURE CO2 48.9 mmHg (38.0-50.0); VENOUS PARTIAL PRESSURE O2 32.2 mmHg (30.0-50.0); VENOUS STANDARD HCO3 23.7 MEQ/L; VENOUS TOTAL CO2 27.9 MEQ/L (24.0-28.0)
[2018-08-11 15:37] LABS: ADD MANUAL DIFFER YES; DIFF SLIDE NUMBER 321; POSITIVE MORPH POS FLAG
[2018-08-11 15:48] LABS: AMMONIA < 10 uMOL/L (<32)
[2018-08-11 15:58] LABS: BEDSIDE GLUCOSE 123 MG/DL (80-115)
[2018-08-11 15:59] LABS: ALBUMIN 3.3 GM/DL (3.2-5.2); ALBUMIN/GLOBULIN RATIO 0.89 (1.00-1.93); ALKALINE PHOSPHATASE 104 U/L (45-117); ALT/SGPT 15 U/L (12-78); ANION GAP 11 MEQ/L (8-16); AST/SGOT 9 U/L (7-37); BILIRUBIN,DIRECT 0.2 MG/DL (0.0-0.2); BILIRUBIN,TOTAL 0.6 MG/DL (0.2-1.0); BLOOD UREA NITROGEN 10 MG/DL (7-18); CALCIUM LEVEL 9.3 MG/DL (8.8-10.2); CARBON DIOXIDE LEVEL 27 MEQ/L (21-32); CHLORIDE LEVEL 92 MEQ/L (98-107); CK-MB VALUE MASS < 1.0 NG/ML (<3.6); CPK CREATINE PHOSPHOKINASE 26 U/L (26-192); CREATININE FOR GFR 0.64 MG/DL (0.55-1.30); ETHYL ALCOHOL (ETHANOL) < 0.003 % (0.000-0.010); GLOMERULAR FILTRATION RATE > 60.0 (>45); GLUCOSE, FASTING 102 MG/DL (70-100); MB/CK RELATIVE INDEX 3.85 (< OR =4); POTASSIUM SERUM 4.6 MEQ/L (3.5-5.1); SALICYLATE LEVEL 2.3 MG/DL (5.0-30.0); SODIUM LEVEL 130 MEQ/L (136-145); TROPONIN I < 0.02 NG/ML (< 0.10)
[2018-08-11 16:15] LABS: ATYPICAL LYMPH 3 % (0-5); BANDS 13 % (< 11); BASOPHILS 2 % (0-4); EOSINOPHILS 2 % (0-5); LYMPHOCYTES 5 % (16-52); MONOCYTES 5 % (0-8); NEUTROPHILS 70 % (35-75); PLATELET ESTIMATE INCREASED (NORMAL)
[2018-08-11 16:30] LABS: KETONE, URINE AUTO RFX TRACE mg/dL (NEGATIVE); LEUKOCYTE ESTERASE UR AUTO RFX NEGATIVE (NEGATIVE); MUCUS, URINE RFX SMALL (NEGATIVE); NITRITE, URINE AUTO RFX NEGATIVE (NEGATIVE); RBC, URINE AUTO RFX 6 /HPF (0-3); SPECIFIC GRAVITY UR AUTO RFX 1.016 (1.002-1.035); SQUAM EPITHELIAL CELL UR AURFX 0 /HPF (0-6); WBC, URINE AUTO RFX 1 /HPF (0-3)
[2018-08-11] MEDS ORDERED: ALBUTEROL SULFATE 2.5 MG/0.5 ML INH NEB SOLN INH (22:00)
[2018-08-11] MEDS: PIPERACILLIN/TAZOBACTAM SOD 3.375 GM in D5W MINI-BAG PLUS 50 ML IV (22:15)
[2018-08-12] MEDS: ACETAMINOPHEN TAB 650MG DOSE (2X325MG) PO (01:27)
[2018-08-12] MEDS: NS 1,000 ML IV ×3 (01:32→16:26)
[2018-08-12] MEDS: DOXYCYCLINE HYCLATE 100 MG in D5W MINI-BAG PLUS 100 ML IV ×2 (02:01→13:00)
[2018-08-12] MEDS ORDERED: MORPHINE 4 MG/ML 1ML VIAL/SYRINGE (J2270) As Ordered (03:35)
[2018-08-12] MEDS: MORPHINE 4 MG/ML 1ML VIAL/SYRINGE (J2270) IV (03:45)
[2018-08-12] MEDS: HEPARIN SOD (PORCINE) 5000 UNITS/ML VIAL SC ×2 (06:00→13:01)
[2018-08-12] MEDS: PIPERACILLIN/TAZOBACTAM SOD 3.375 GM in D5W MINI-BAG PLUS 50 ML IV ×3 (06:01→16:26)
[2018-08-12] MEDS: NS 500 ML IV (06:45)
[2018-08-12] MEDS ORDERED: PERCOCET 5MG/325MG TAB PO ×2 (06:45)
[2018-08-12 07:19] LABS: HEMATOCRIT 33.9 % (36.0-47.0); HEMOGLOBIN 11.6 g/dl (12.0-15.5); MEAN CORPUSCULAR HEMOGLOBIN 31.3 pg (27.0-33.0); MEAN CORPUSCULAR HGB CONC 34.2 g/dl (32.0-36.5); MEAN CORPUSCULAR VOLUME 91.4 fl (80.0-96.0); PLATELET COUNT, AUTOMATED 559 10^3/uL (150-450); RED BLOOD COUNT 3.71 10^6/uL (4.00-5.40); RED CELL DISTRIBUTION WIDTH 13.7 % (11.5-14.5); WHITE BLOOD COUNT 15.7 10^3/uL (4.0-10.0)
[2018-08-12 07:20] LABS: ADD MANUAL DIFFER YES; DIFF SLIDE NUMBER 84; POSITIVE MORPH POS FLAG
[2018-08-12 07:31] LABS: ANION GAP 10 MEQ/L (8-16); BLOOD UREA NITROGEN 8 MG/DL (7-18); CARBON DIOXIDE LEVEL 24 MEQ/L (21-32); CHLORIDE LEVEL 101 MEQ/L (98-107); CREATININE FOR GFR 0.57 MG/DL (0.55-1.30); GLOMERULAR FILTRATION RATE > 60.0 (>45); GLUCOSE, FASTING 108 MG/DL (70-100); POTASSIUM SERUM 3.8 MEQ/L (3.5-5.1); SODIUM LEVEL 135 MEQ/L (136-145)
[2018-08-12 07:35] LABS: LACTIC ACID SEPSIS PROTOCOL 1.9 MMOL/L (0.4-2.0)
[2018-08-12 08:08] LABS: EOSINOPHILS 1 % (0-5); LYMPHOCYTES 6 % (16-52); MONOCYTES 1 % (0-8); NEUTROPHILS 92 % (35-75)
[2018-08-12 08:09] LABS: PLATELET ESTIMATE INCREASED (NORMAL)
[2018-08-12] MEDS: FAMOTIDINE 20 MG TAB PO ×2 (09:00→09:21)
[2018-08-12] MEDS: SERTRALINE HCL 50 MG TAB PO ×2 (09:00→09:21)
== END 2018-08-12 18:23 | disposition home or self-care (01) | DRG 177 ==
LOC: M MS4PR 08-12 00:15 → M ED 13:38 → M ED INP 21:48
DX: J69.0 Pneumonitis due to inhalation of food and vomit (principal); E43 Unspecified severe protein-calorie malnutrition; C79.31 Secondary malignant neoplasm of brain; E87.1 Hypo-osmolality and hyponatremia; K21.9 Gastro-esophageal reflux disease without esophagitis; F32.9 Major depressive disorder, single episode, unspecified; Z51.5 Encounter for palliative care; Z79.899 Other long term (current) drug therapy; Z66 Do not resuscitate; Z85.118 Personal history of other malignant neoplasm of bronchus and lung; Z88.8 Allergy status to other drugs, medicaments and biological substances